=== PATIENT | female | born 1970 | race Two or more races ===

== ENCOUNTER 2019-10-24 06:43 | Day surgery (SDC) | payer OTHER ==
[~2019-10-24 06:43] MED LIST: CINNAMON500 MG PO; CLONAZEPAM1 M1 PO; CLONAZEPAM2 M1 PO; GEODON20 MG PO; LITH PO; MULTIVITAMINS1 EAC9 PO; VIT B12 PO; WELLBUTRIN SR150 MG PO
[2019-10-24] MEDS ORDERED: ULTRAM50 MG PO (12:27)
[2019-10-24] MEDS ORDERED: POLY119PG PO (12:27)
[2019-10-24] MEDS ORDERED: SURFAK240 MG PO (12:27)
[2019-10-24] MEDS ORDERED: NEXIUM 24HR20 MG PO (12:28)
== END 2019-10-24 15:50 | disposition home or self-care (01) ==
LOC: CIR.AMB 06:43
DX: K80.10 Calculus of gallbladder with chronic cholecystitis without obstruction (principal)